=== PATIENT | female | born 1960 | race Hispanic/Latino ===

== ENCOUNTER 2023-12-25 15:58 | Observation (INO) | payer OTHER ==
[2023-12-25] VITALS (9 sets, daily range): BP systolic 112–167; BP diastolic 55–104
[~2023-12-25] VITALS: Ht 157.5 cm; Wt 94.0 kg
[~2023-12-25 15:58] MED LIST: ALL DAY ALLG10 M1 PO; AMLODIPINE10 MG PO; AMOXICILLIN500 MG PO; CARAFATE1 GM/10 M1 PO; CIPROFLOXACIN500 M1 PO; CLEOCIN VAG2 % VA; CLINDAMYCIN2 % VA; CVS ESOMEPRAZOL20 MG PO; DICYCLOMINE10 MG PO; DIFLUCAN150 MG OR; FLEXERIL PO; FLEXERIL5 M1 PO; HYDROCO/APAP1 TA9 PO; IMODIUM A-D2 MG PO; LEVSIN0.125 M1 PO; LOSARTAN POT50 MG PO; LOVASTATIN20 M1 PO; METFORMIN500 MG PO; METFORMIN850 MG PO; METRONIDAZOLE500 MG PO; PEPCID20 MG PO; TAM75CAP PO; TAMSULOSIN0.4 MG PO; TRAMADOL HCL50 MG PO; TRAMADOL HYDROC50 M1 PO; ULTRAM50 MG PO; ZITHROMAX TRI-P1 TAB PO; ZOFRAN4 MG/TAB PO; ZPAK PO
[2023-12-25] MEDS ORDERED: ASPIRIN 81 MG/TAB PO ONE (16:20)
[2023-12-25] MEDS ORDERED: NITROGLYCERIN 0.4 MG/TAB SL ONE (16:20)
[2023-12-25 17:14] LABS: BASO% 0.5 % (0-3); EOS% 3.9 % (0-8); HEMATOCRIT 43.8 % (37.0-47.0); HEMOGLOBIN 13.8 g/dl (12.0-16.0); IMMATURE GRANULOCYTES 0.2 % (0.0-5.0); LYMPH% 58.2 % (15-41); MEAN CORPUSCULAR HGB 29.9 pG CALC (26.0-32.0); MEAN CORPUSCULAR HGB CONC 31.5 g/dL CAL (32.0-36.0); MONO% 6.6 % (2-13); NEUT# 1.71 thou/uL (2.00-7.15); NEUT% 30.6 % (42-76); RED BLOOD COUNT 4.61 mill/uL (4.20-5.60); RED CELL DISTRI WIDTH 12.5 % (11.5-15.5)
[2023-12-25 17:19] LABS: ALBUMIN 4.2 g/dL (3.2-5.0); ALKALINE PHOSPHATASE 73 u/l (38-126); ANION GAP 10 (6-22 (CALC)); BILIRUBIN, TOTAL 0.4 mg/dL (0.02-1.3); BUN 17 mg/dL (8-23); BUN/CREATININE RATIO 29 (12-20 (CALC)); CARBON DIOXIDE 25 mmol/l (22-30); CHLORIDE 112 mmol/l (95-108); CREATININE 0.6 mg/dL (0.5-1.0); ESTIMATED GFR 102 ML/MIN (>=90 (CALC)); LIPASE 58 u/l (23-300); SGOT/AST 32 u/l (9-36); SODIUM 142 mmol/l (137-146); TOTAL PROTEIN 7.4 g/dL (6.3-8.2)
[2023-12-25 17:52] LABS: URINE BILIRUBIN - DIPSTICK Negative (NEGATIVE); URINE BLOOD DIPSTICK Negative (NEGATIVE); URINE GLUCOSE - DIPSTICK Negative (NEGATIVE); URINE KETONE Negative (NEGATIVE); URINE LEUK ESTERASE Negative (NEGATIVE); URINE NITRITE - DIPSTICK Negative (Negative); URINE PH 5.5 (4.5-8.0); URINE PROTEIN - DIPSTICK Negative (NEG-TRACE); URINE SPECIFIC GRAVITY >=1.030; URINE UROBILINOGEN - DIPSTICK 0.2 E.U./dL (0.2)
[2023-12-25 17:54] LABS: URINE COLOR Yellow
[2023-12-25] MEDS ORDERED: ACETAMINOPHEN 325 MG/TAB PO PRN (20:05)
[2023-12-25] MEDS ORDERED: MORPHINE SULFATE 4 MG/ML VIAL IV PRN (20:05)
[2023-12-25] MEDS ORDERED: SODIUM CHLORIDE 0.9% 1,000 ML IV PRN (20:05)
[2023-12-25] MEDS ORDERED: NITROGLYCERIN 0.4 MG/TAB SL PRN (20:05)
[2023-12-25] MEDS ORDERED: MAGNESIUM HYDROXIDE 30 ML UDC PO PRN (20:05)
[2023-12-25] MEDS ORDERED: CYCLOBENZAPRINE HCL 5 MG TAB PO PRN (20:10)
[2023-12-25] MEDS ORDERED: AUGMENTIN500TAB PO (20:30)
[2023-12-25] MEDS ORDERED: FLUTICASONE P (20:31)
[2023-12-25] MEDS ORDERED: COZAAR25 MG PO (20:32)
[2023-12-25] MEDS ORDERED: METFORMIN HYD1000 MG PO (20:32)
[2023-12-25] MEDS ORDERED: ZYRTEC10 MG PO (20:33)
[2023-12-25] MEDS ORDERED: ATORVASTATIN CALCIUM 40 MG/TAB PO SCH (21:00)
[2023-12-25] MEDS ORDERED: ENOXAPARIN SODIUM 40 MG/0.4 ML SYR SC SCH (21:00)
[2023-12-25] MEDS ORDERED: hydrALAZINE HCL 20 MG/ML VIAL(1 ML) IV PRN (22:25)
[2023-12-26 04:22] VITALS: BP 107/52
[2023-12-26 05:06] VITALS: BP 107/52
[2023-12-26 05:33] LABS: BASO% 0.2 % (0-3); HEMATOCRIT 39.3 % (37.0-47.0); HEMOGLOBIN 12.6 g/dl (12.0-16.0); LYMPH% 59.3 % (15-41); MEAN CELL VOLUME 96.6 fL CALC (80.0-100.0); MEAN CORPUSCULAR HGB CONC 32.1 g/dL CAL (32.0-36.0); MONO% 6.8 % (2-13); NEUT# 1.35 thou/uL (2.00-7.15); NEUT% 29.7 % (42-76); RED BLOOD COUNT 4.07 mill/uL (4.20-5.60); RED CELL DISTRI WIDTH 12.6 % (11.5-15.5)
[2023-12-26 05:55] LABS: CHOLESTEROL HDL RATIO 2.7 (<4.4 (CALC)); CREATININE 0.5 mg/dL (0.5-1.0); MAGNESIUM 2.1 mg/dL (1.6-2.3); POTASSIUM 3.7 mmol/l (3.5-5.1)
[2023-12-26 06:04] LABS: ALBUMIN 3.3 g/dL (3.2-5.0); BILIRUBIN, TOTAL 0.6 mg/dL (0.02-1.3)
[2023-12-26 07:36] VITALS: BP 145/71
[2023-12-26 08:08] VITALS: BP 145/71
[2023-12-26] MEDS ORDERED: CLOPIDOGREL BISULFATE 75 MG/TAB TAB PO SCH (09:00)
[2023-12-26] MEDS ORDERED: LOSARTAN Potassium 25 MG/TAB PO SCH (09:00)
[2023-12-26] MEDS ORDERED: PANTOPRAZOLE SODIUM Sesquihydr 40 MG/TAB PO SCH (09:00)
[2023-12-26] MEDS ORDERED: AMOXICILLIN & POT CLAVULANATE 500 MG/TAB PO SCH (09:30)
== END 2023-12-26 12:15 | disposition home or self-care (01) ==
LOC: ED 15:58 → ED-I 19:40 → ED 20:01 → MS2 20:02
PROVIDERS: Nurse Practitioner; ADMIT Student in an Organized Health Care Education/Training Program; ATTEND Student in an Organized Health Care Education/Training Program
DX: R07.2 Precordial pain (principal); R05.9 Cough, unspecified; E11.9 Type 2 diabetes mellitus without complications; I10 Essential (primary) hypertension; Z79.84 Long term (current) use of oral hypoglycemic drugs; R06.02 Shortness of breath
CPT/HCPCS: G0378; J1650; Q9967